=== PATIENT | male | born 1970 | race Hispanic/Latino ===

== ENCOUNTER → 2024-12-30 | Outpatient (CLI) | payer OTHER ==
--- NOTE | 2024-12-31 23:35 | HMCSR ---
APPROVED REPORT Height: 5 ft 9in Weight: 175 lbs TEST INDICATIONS CAD The imaging protocol used to acquire images was Rest Tc-99m/stress Tc-99m 1 day Consent: The procedure was explained and understood by the patient. Informerd consent was witnessed rTisha Musa(N)(ARRT) First, low dose rest was performed then high dose stress. RESTING DATA: The resting ekg shows: NSR Rest SPECT myocardial perfusion imaging was performed in supine position minutes following the intra venous injection of 11 mCi of Tc-99 Sestamibi. Time of rest injection: 09:20: Date: 12/30/2024 EXERCISE STRESS: At peak stress, the patient was injected intravenously with 30mCi of Tc-99 Sestamibi. Time of stress injection: 11:22: Date: 12/30/2024 Time of stress imagin:22: Date: 12/30/2024 Heart Rate at time of stress injection: 140 bpm. Patient continued to exercise for 2 minute(s). Gated Stress SPECT was performed 60 minutes after stress injection. The images were gated to evaluate regional wall motion and calculate left ventricular ejection fracti on. STRESS DETAILS Reason for Termination: Infusion complete Stress Symptoms: No chest pain or symptoms Max HR Achieved: 145 bpm % of APMHR Achieved: 103 Max Blood Pressure: 157/60 mmHg Exercise duration: 9 min Highest Stage Achieved: Stage 3: 3.4 mph at 14% grade. Stress ECG: NSR Study quality was excellent. Lung uptake was Normal. Artifact: No artifact LEFT VENTRICLE Size: The left ventricular size is normal. Systolic Function:The left ventricular systolic function is normal. Wall Motion: No regional wall motion abnormalities noted. The left ventricular ejection fraction was calculated to be 79%.TID = 0.68. LV PERFUSION The rest and stress images show normal perfusion. RV Size/Shape Normal RV Conclusion The left ventricular ejection fraction was calculated to be 79%.TID = 0.68. The rest and stress images show normal perfusion.
== END | disposition home or self-care (01) ==
LOC: RAH 08:43
PROVIDERS: ATTEND Internal Medicine Cardiovascular Disease
DX: I25.10 Atherosclerotic heart disease of native coronary artery without angina pectoris (principal); Z91.89 Other specified personal risk factors, not elsewhere classified
CPT/HCPCS: 78452; 93017; A9500 ×2